=== PATIENT | male | born 1965 | race Caucasian/White ===

== ENCOUNTER 2018-11-07 13:09 | Emergency (ER) | payer OTHER ==
[~2018-11-07] VITALS: Ht 193 cm; Wt 99.8 kg
[2018-11-07] MEDS ORDERED: ASPIR 8181 MG PO (13:37)
[2018-11-07] MEDS ORDERED: HYDROCHLOROTH12.5 M1 PO (13:37)
== END 2018-11-07 14:01 | disposition home or self-care (01) ==
LOC: ED 13:09
DX: S13.9XXA Sprain of joints and ligaments of unspecified parts of neck, initial encounter (principal); S00.03XA Contusion of scalp, initial encounter; W22.8XXA Striking against or struck by other objects, initial encounter; I10 Essential (primary) hypertension; Z79.899 Other long term (current) drug therapy; Z79.82 Long term (current) use of aspirin
CPT/HCPCS: 99283